=== PATIENT | female | born 1950 | race Caucasian/White ===

== ENCOUNTER 2020-11-28 09:49 | Outpatient (CLI) | payer MEDICARE, OTHER | END 2020-11-28 09:50 | disposition EMS.NT | LOC: EMS 09:49 | DX: Z03.89 Encounter for observation for other suspected diseases and conditions ruled out (principal) ==

== ENCOUNTER 2021-10-02 15:14 | Outpatient (CLI) | payer MEDICARE, OTHER | END 2021-10-02 15:15 | disposition critical access hospital (66) | LOC: EMS 15:14 | DX: M25.561 Pain in right knee (principal) | CPT/HCPCS: A0425; A0427 ==

== ENCOUNTER 2021-10-02 15:29 | Emergency (ER) | payer MEDICARE, OTHER ==
--- NOTE | 2021-10-02 15:51 | ED Physician Documentation ---
History of Present Illness - Stated complaint Stated Complaint: KNEE PX - Chief complaint Chief Complaint: Ext Problem - History obtained from History obtained from: Patient, EMS - History of Present Illness Timing: Today Pain level max: 8 Pain level now: 7 - Additonal information Additional information: EMS gave the patient 100 mcg of fentanyl prior to arrival, therefore it is very difficult for the patient to give any history secondary to drowsiness The history was taken from EMS. EMS states that the patient has a longstanding history of left knee pain. She states increasing pain over the past few weeks. Took oxycodone today without relief. Has a walker at home. Unknown if she uses it or not. She is told EMS that she is awaiting a knee replacement surgery for that knee. Patient denied any trauma or falls to EMS. 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 - Present Medications Home Medications: Ambulatory Orders Medication Instructions Recorded Confirmed Aspirin 81 mg PO DAILY 03/06/13 03/06/13 Bupropion HCl [Bupropion Xl] 150 mg PO BID 03/06/13 03/06/13 Liothyronine Sodium 25 mcg PO DAILY 03/06/13 03/06/13 Metformin HCl 1,000 mg PO BID 03/06/13 03/06/13 Simvastatin [Zocor] 40 mg PO DAILY 03/06/13 03/06/13 Furosemide [Lasix] 40 mg PO ONCE 03/07/13 03/07/13 Gabapentin [Neurontin] 100 mg PO TID 03/07/13 03/07/13 Losartan [Cozaar] 100 mg PO DAILY 03/07/13 03/07/13 Cholecalciferol (Vitamin D3) 1,000 unit PO DAILY 04/07/13 04/07/13 [Vitamin D] Cod Liver Oil 1 each PO DAILY 04/07/13 04/07/13 Multivitamin [Multivitamins] 1 each PO DAILY 04/07/13 04/07/13 [place]-3 Fatty Acids/Fish Oil 1 each PO DAILY 04/07/13 04/07/13 [[place] 3 1,000 mg Softgel] Ubidecarenone [Coq-10] 100 mg PO DAILY 04/07/13 04/07/13 Furosemide [Lasix] 40 mg PO DAILY 09/05/13 09/05/13 Oxycodone HCl/Acetaminophen 1 - 2 each PO Q6H PRN #14 tablet 10/02/21 [Percocet 5-325 mg Tablet] - Allergies Allergies/Adverse Reactions: Allergies Allergy/AdvReac Type Severity Reaction Status Date / Time venom-honey bee Allergy Severe SEPTICEMIA Verified 10/02/21 15:39 [bee venom (honey bee)] oxycodone [Oxycodone] AdvReac Mild INSOMNIA Verified 10/02/21 15:39 simvastatin AdvReac Mild TONGUE Verified 10/02/21 15:39 SWELLS BCP AdvReac Mild TONGUE Uncoded 10/02/21 15:39 SWELLS - Social History Smoking Status: Never smoker PD ED PE NORMAL - Vitals Vital signs reviewed: Yes - General General: No acute distress, Well developed/nourished, Other (drowsy but arousable) - HEENT HEENT: Moist mucous membranes - Neck Neck: Supple, no meningeal sign - Cardiac Cardiac: RRR, Strong equal pulses - Respiratory Respiratory: No respiratory distress, Clear bilaterally - Abdomen Abdomen: Soft, Non tender, Non distended - Derm Derm: Warm and dry - Extremities Extremities: Other (scars over both knees, normal skin. no swelling. FROM without pain. 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 ) PD MEDICAL DECISION MAKING - ED course Complexity details: reviewed results, re-evaluated patient, considered differential, d/w patient ED course: Pain well controlled in the emergency department. Patient states that she is out of her oxycodone and requests a refill. We will prescribe a small amount of medication for her. She has had a knee replacement on the left knee. No apparent issues with hardware. We will have her follow-up with her doctor closely for further care. Patient counseled regarding signs and symptoms for which I believe and urgent re-evaluation would be necessary. Patient with good understanding of and agreement to plan and is comfortable going home at this time This document was made in part using voice recognition software. While efforts are made to proofread this document, sound alike and grammatical errors may occur. I am prescribing a short course of short-acting opioid pain medication for this patient. 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 I have discussed that the opioids are for short term therapy only, and will not be refilled from the ED. Departure - Departure Disposition: 01 Home, Self Care Clinical Impression: Knee pain, left Qualifiers: Chronicity: acute Qualified Code(s): M25.562 - Pain in left knee Condition: Good Instructions: ED Knee Pain [facility] Follow-Up: MARY FISHER MD [Physician No Access] - Mary Fisher MD [Provider Admit Priv/Credential] - Prescriptions: Oxycodone HCl/Acetaminophen [Percocet 5-325 mg Tablet] 1 - 2 each PO Q6H PRN #14 tablet PRN Reason: pain Comments: Please follow-up with your doctor for further care. Your x-ray shows arthritis in your knee. I would continue to use your walker at home. Return if you worsen. Your prescriptions were sent to [facility] in [place]. I am prescribing a short course of narcotic pain medication for you. These are potentially dangerous and addictive medications that should be used carefully. These medications may constipate you. Take an hgll-oes-szisptm stool softener (docusate) twice daily with plenty of water while taking these medications. If you go 24 hours without a bowel movement, take fxtl-[id number] miralax, per package instructions. Do not drink or drive while taking these medications. If you received narcotic or sedating medications while in the emergency depar tment, do not drive for 24 hours. Store this medication in a safe, secure place and out of reach of children. It is a violation of federal law to give or sell this medication to another person or to use in a manner other than prescribed. The ED will not refill narcotic prescriptions, including prescriptions lost or stolen. To dispose of unwanted medications: 1. [facility] at [address] in [place] has a medication drop box. They accept prescription medications (in pill form) Wednesday through Wednesday 9:00 a.m. to 5:00 p.m. 2. The [facility] accepts prescription medications (in pill form only) for disposal year round. Call for more information. 3. Contact the [facility] for the next [facility] sponsored prescription drug collection event. , [phone], or [phone]; Discharge Date/Time: 10/02/21 17:23
--- NOTE | 2021-10-02 16:17 | XRAY Report ---
PROCEDURE: Knee 4 View LT INDICATIONS: L knee pain, no known injury TECHNIQUE: 4 views of the left knee(s) were acquired. COMPARISON: April 11, 2013. FINDINGS: BONES/JOINT: No acute, displaced fracture or dislocation. Tricompartment arthroplasty without eviden ce of compromise. No substantial suprapatellar joint effusion. SOFT TISSUES: No significant abnormality. IMPRESSION: 1.No acute osseous abnormality. Reviewed by: Ketan Buenrostro MD on 10/02/2021 4:15 PM PST Approved by: Ketan Buenrostro MD on 10/02/2021 4:15 PM PST Station ID: [id number]
[2021-10-02 17:23] VITALS: BP 159/84
== END 2021-10-02 17:23 | disposition home or self-care (01) ==
LOC: EDUNIT# → ED 15:29
DX: M25.562 Pain in left knee (principal); Z96.652 Presence of left artificial knee joint; I10 Essential (primary) hypertension; E10.9 Type 1 diabetes mellitus without complications; Z79.84 Long term (current) use of oral hypoglycemic drugs; Z79.82 Long term (current) use of aspirin
CPT/HCPCS: 99281; 99283

== ENCOUNTER → 2022-09-05 | Outpatient (CLI) | payer MEDICARE, OTHER | END | disposition EMS.NT | LOC: EMS 15:37 | DX: R53.83 Other fatigue (principal); R11.2 Nausea with vomiting, unspecified; R50.9 Fever, unspecified ==

== ENCOUNTER 2022-09-07 14:27 | Emergency (ER) | payer MEDICARE, OTHER ==
[2022-09-07 16:06] LABS: BASOPHILS % (AUTO) 0.8 %; EOSINOPHILS % (AUTO) 0.4 %; HCT - HEMATOCRIT 36.2 % (37.0-47.0); HGB - HEMOGLOBIN 10.9 g/dL (12.0-16.0); LYMPHOCYTES # (AUTO) 1.7 10^3/uL (1.5-3.5); LYMPHOCYTES % (AUTO) 33.5 %; MEAN CORPUSCULAR HEMOGLOBIN 23.2 pg (27.0-31.0); MEAN CORPUSCULAR HGB CONC 30.1 g/dL (32.0-36.0); MEAN PLATELET VOLUME 9.4 fL (7.9-10.8); MONOCYTES # (AUTO) 0.9 10^3/uL (0.0-1.0); MONOCYTES % (AUTO) 18.5 %; NEUTROPHILS # (AUTO) 2.3 10^3/uL (1.5-6.6); NEUTROPHILS % (AUTO) 46.4 %; PLT - PLATELET COUNT 257 10^3/uL (130-450); RED CELL DISTRIBUTION WIDTH 14.6 % (12.0-15.0)
[2022-09-07 16:09] LABS: B. PARAPERTUSSIS- RESP PCR PAN NOT DETECTED; B. PERTUSSIS- RESP PCR PANEL NOT DETECTED; C. PNEUMONIAE- RESP PCR PANEL NOT DETECTED; CORONAVIRUS 229E-RESP PCR NOT DETECTED; CORONAVIRUS HKU1-RESP PCR NOT DETECTED; CORONAVIRUS NL63-RESP PCR NOT DETECTED; CORONAVIRUS OC43-RESP PCR NOT DETECTED; HUMAN METAPNEUMOVIRUS NOT DETECTED; INFLUENZA A H3- RESP PCR PANEL DETECTED; INFLUENZA B - RESP PCR PANEL NOT DETECTED; M. PNEUMONIAE- RESP PCR PANEL NOT DETECTED; PARAINFLUENZA VIRUS 1 NOT DETECTED; PARAINFLUENZA VIRUS 2 NOT DETECTED; PARAINFLUENZA VIRUS 3 NOT DETECTED; PARAINFLUENZA VIRUS 4 NOT DETECTED; RHINOVIRUS/ENTEROVIRUS NOT DETECTED; RSV- RESP PCR PANEL NOT DETECTED; SARS-CoV-2 -RESP PCR PANEL NOT DETECTED
[2022-09-07 16:41] LABS: ALBUMIN 3.8 g/dL (3.2-5.5); ALBUMIN/GLOBULIN RATIO 1.1 (1.0-2.2); BILIRUBIN,TOTAL 0.4 mg/dL (0.2-1.0); CALCIUM 8.8 mg/dL (8.5-10.3); CREATININE 2.1 mg/dL (0.4-1.0); POTASSIUM 4.2 mmol/L (3.5-5.0); TOTAL PROTEIN 7.4 g/dL (6.7-8.2)
[2022-09-07] MEDS ORDERED: SODIUM CHLORIDE 0.9% 1,000 ML IV STA (19:23)
[2022-09-07 20:06] LABS: BILIRUBIN,URINE NEGATIVE (NEGATIVE); GLUCOSE, URINE (UA) NEGATIVE (NEGATIVE); KETONES,URINE (UA) NEGATIVE (NEGATIVE); LEUKOCYTE ESTERASE, URINE SMALL (NEGATIVE); NITRITE,URINE NEGATIVE (NEGATIVE); OCCULT BLOOD,URINE NEGATIVE (NEGATIVE); PROTEIN,URINE TRACE mg/dL (NEGATIVE); UROBILINOGEN,URINE 0.2 (NORMAL) E.U./dL (NORMAL)
[2022-09-07 20:08] LABS: CLARITY,URINE HAZY (CLEAR)
[2022-09-07 20:24] LABS: BACTERIA,URINE Few /HPF (None Seen); RBC,URINE 0-5 /HPF (0-5); SQUAMOUS EPITHELIAL CELL,UR MOD Squamous (<= Few)
[2022-09-07] MEDS ORDERED: cefTRIAXone 1 GM VIAL IVP STA (20:33)
[2022-09-07 20:46] VITALS: BP 113/81
--- NOTE | 2022-09-07 20:52 | ED Physician Documentation ---
History of Present Illness - Stated complaint Stated Complaint: FEMALE - Chief complaint Chief Complaint: Resp - History obtained from History obtained from: Patient, Family - History of Present Illness Timing: How many days ago (4) Pain level max: 0 Pain level now: 0 - Additonal information Additional information: Patient is a 71-year-old female who presents to the emergency department since she was diagnosed with influenza about 4 days ago. Has had decreased appetite, decreased oral intake and urinary incontinence since that time. Nothing makes it better or worse. No cough. No congestion. Brought in by family. Patient states that she feels tired. Review of Systems Ten Systems: 10 systems reviewed and negative Constitutional: denies: Fever, Chills Throat: denies: Sore throat Respiratory: denies: Dyspnea, Wheezing GI: denies: Vomiting, Diarrhea Skin: denies: Rash Musculoskeletal: denies: Neck pain, Back pain Neurologic: denies: Headache PD PAST MEDICAL HISTORY - Past Medical History Past Medical History: Yes Cardiovascular: Hypertension, High cholesterol Respiratory: None Endocrine/Autoimmune: Type 1 diabetes GI: None : None HEENT: None Psych: None Musculoskeletal: Osteoarthritis Derm: None - Past Surgical History Past Surgical History: Yes General: Cholecystectomy, Colonoscopy, Other Ortho: Knee replacement, 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 - Present Medications Home Medications: Ambulatory Orders Medication Instructions Recorded Confirmed Aspirin 81 mg PO DAILY 03/06/13 03/06/13 Bupropion HCl [Bupropion Xl] 150 mg PO BID 03/06/13 03/06/13 Liothyronine Sodium 25 mcg PO DAILY 03/06/13 03/06/13 Metformin HCl 1,000 mg PO BID 03/06/13 03/06/13 Simvastatin [Zocor] 40 mg PO DAILY 03/06/13 03/06/13 Furosemide [Lasix] 40 mg PO ONCE 03/07/13 03/07/13 Gabapentin [Neurontin] 100 mg PO TID 03/07/13 03/07/13 Losartan [Cozaar] 100 mg PO DAILY 03/07/13 03/07/13 Cholecalciferol (Vitamin D3) 1,000 unit PO DAILY 04/07/13 04/07/13 [Vitamin D] Cod Liver Oil 1 each PO DAILY 04/07/13 04/07/13 Multivitamin [Multivitamins] 1 each PO DAILY 04/07/13 04/07/13 [place]-3 Fatty Acids/Fish Oil 1 each PO DAILY 04/07/13 04/07/13 [[place] 3 1,000 mg Softgel] Ubidecarenone [Coq-10] 100 mg PO DAILY 04/07/13 04/07/13 Furosemide [Lasix] 40 mg PO DAILY 09/05/13 09/05/13 Oxycodone HCl/Acetaminophen 1 - 2 each PO Q6H PRN #14 tablet 10/02/21 [Percocet 5-325 mg Tablet] cephALEXin [Keflex] 500 mg PO Q6H #20 cap 09/07/22 - Allergies Allergies/Adverse Reactions: Allergies Allergy/AdvReac Type Severity Reaction Status Date / Time venom-honey bee Allergy Severe SEPTICEMIA Verified 10/02/21 15:39 [bee venom (honey bee)] oxycodone [Oxycodone] AdvReac Mild INSOMNIA Verified 10/02/21 15:39 simvastatin AdvReac Mild TONGUE Verified 10/02/21 15:39 SWELLS BCP AdvReac Mild TONGUE Uncoded 10/02/21 15:39 SWELLS - Social History Does the pt smoke?: No Smoking Status: Never smoker Does the pt drink ETOH?: No Does the pt have substance abuse?: No - Immunizations Immunizations are current?: Yes - POLST Patient has POLST: No PD ED PE NORMAL - Vitals Vital signs reviewed: Yes - General General: Alert and oriented X 3, No acute distress, Well developed/nourished - HEENT HEENT: PERRL, Moist mucous membranes - Neck Neck: Supple, no meningeal sign - Cardiac Cardiac: RRR, Strong equal pulses - Respiratory Respiratory: No respiratory distress, Clear bilaterally - Abdomen Abdomen: Soft, Non tender, Non distended - Back Back: No CVA TTP, No spinal TTP - Derm Derm: Warm and dry, No rash - Extremities Extremities: No edema, No calf tenderness / cord - Neuro Neuro: Alert and oriented X 3 - Psych Psych: Normal mood, Normal affect Results - Vitals Vitals: Vital Signs - 24 hr 09/07/22 09/07/22 09/07/22 14:52 19:50 20:45 Temperature 36.0 C L 36.4 C L 36.8 C Heart Rate 69 59 L 64 Respiratory 18 16 16 Rate Blood Pressure 112/59 L 122/73 113/81 H O2 Saturation 97 99 98 Oxygen O2 Source Room air - Labs Labs: Laboratory Tests 09/07/22 09/07/22 09/07/22 15:03 16:01 16:01 WBC 5.0 RBC 4.70 Hgb 10.9 L Hct 36.2 L MCV 77.0 L MCH 23.2 L MCHC 30.1 L RDW 14.6 Plt Count 257 MPV 9.4 Neut # (Auto) 2.3 Lymph # (Auto) 1.7 [place] # (Auto) 0.9 Eos # (Auto) 0.0 Baso # (Auto) 0.0 Absolute Nucleated RBC 0.00 Nucleated RBC % 0.0 Sodium 129 L Potassium 4.2 Chloride 94 L Carbon Dioxide 22 Anion Gap 13.0 BUN 55 H Creatinine 2.1 H Estimated GFR (MDRD) 23 L Glucose 192 H Calcium 8.8 Total Bilirubin 0.4 AST 33 ALT 23 Alkaline Phosphatase 102 Total Protein 7.4 Albumin 3.8 Globulin 3.6 Albumin/Globulin Ratio 1.1 Urine Color Urine Clarity Urine pH Ur Specific [place] Urine Protein Urine Glucose (UA) Urine Ketones Urine Occult Blood Urine Nitrite Urine Bilirubin Urine Urobilinogen Ur Leukocyte Esterase Urine RBC Urine WBC Ur Squamous Epith Cells Urine Bacteria Ur Microscopic Review Urine Culture Comments Nasal Adenovirus (PCR) NOT DETECTED Nasal B. parapertussis DNA (PCR) NOT DETECTED Nasal Coronavir 229E PCR NOT DETECTED Nasal Coronavir HKU1 PCR NOT DETECTED Nasal Coronavir NL63 PCR NOT DETECTED Nasal Coronavir OC43 PCR NOT DETECTED Nasal Enterovir/Rhinovir PCR NOT DETECTED Nasal Influenza A H3 PCR DETECTED A Nasal Influenza B PCR NOT DETECTED Nasal Parainfluen 1 PCR NOT DETECTED Nasal Parainfluen 2 PCR NOT DETECTED Nasal Parainfluen 3 PCR NOT DETECTED Nasal Parainfluen 4 PCR NOT DETECTED Nasal RSV (PCR) NOT DETECTED Nasal B.pertussis DNA PCR NOT DETECTED Nasal C.pneumoniae (PCR) NOT DETECTED Felipe Human Metapneumo PCR NOT DETECTED Nasal M.pneumoniae (PCR) NOT DETECTED Nasal SARS-CoV-2 (PCR) NOT DETECTED 09/07/22 16:52 WBC RBC Hgb Hct MCV MCH MCHC RDW Plt Count MPV Neut # (Auto) Lymph # (Auto) [place] # (Auto) Eos # (Auto) Baso # (Auto) Absolute Nucleated RBC Nucleated RBC % Sodium Potassium Chloride Carbon Dioxide Anion Gap BUN Creatinine Estimated GFR (MDRD) Glucose Calcium Total Bilirubin AST ALT Alkaline Phosphatase Total Protein Albumin Globulin Albumin/Globulin Ratio Urine Color YELLOW Urine Clarity HAZY Urine pH 5.0 Ur Specific [place] 1.025 Urine Protein TRACE Urine Glucose (UA) NEGATIVE Urine Ketones NEGATIVE Urine Occult Blood NEGATIVE Urine Nitrite NEGATIVE Urine Bilirubin NEGATIVE Urine Urobilinogen 0.2 (NORMAL) Ur Leukocyte Esterase SMALL H Urine RBC 0-5 Urine WBC 4-5 Ur Squamous Epith Cells MOD Squamous H Urine Bacteria Few Ur Microscopic Review INDICATED Urine Culture Comments NOT INDICATED Nasal Adenovirus (PCR) Nasal B. parapertussis DNA (PCR) Nasal Coronavir 229E PCR Nasal Coronavir HKU1 PCR Nasal Coronavir NL63 PCR Nasal Coronavir OC43 PCR Nasal Enterovir/Rhinovir PCR Nasal Influenza A H3 PCR Nasal Influenza B PCR Nasal Parainfluen 1 PCR Nasal Parainfluen 2 PCR Nasal Parainfluen 3 PCR Nasal Parainfluen 4 PCR Nasal RSV (PCR) Nasal B.pertussis DNA PCR Nasal C.pneumoniae (PCR) Felipe Human Metapneumo PCR Nasal M.pneumoniae (PCR) Nasal SARS-CoV-2 (PCR) PD MEDICAL DECISION MAKING - ED course Complexity details: reviewed results, re-evaluated patient, considered differential, d/w patient, d/w family ED course: Patient is well-appearing, nontoxic. Afebrile. No hypoxia. No respiratory distress. Lungs are clear to auscultation bilaterally. Feels better after IV fluids. Also given Rocephin for potential UTI. No evidence of pyelonephritis. No evidence of sepsis. We will continue supportive care and have her follow-up with her PCP for further care. Patient and family counseled regarding signs and symptoms for which I believe and urgent re-evaluation would be necessary. Patient with good understanding of and agreement to plan and is comfortable going home at this time This document was made in part using voice recognition software. While efforts are made to proofread this document, sound alike and grammatical errors may occur. Departure - Departure Disposition: 01 Home, Self Care Clinical Impression: Influenza A, Dehydration, Hyponatremia UTI (urinary tract infection) Qualifiers: Urinary tract infection type: acute cystitis Hematuria presence: without hematuria Qualified Code(s): N30.00 - Acute cystitis without hematuria Condition: Good Instructions: ED Flu, ED UTI Cystitis Female Follow-Up: your,doctor in 1 week [Other] Prescriptions: cephALEXin [Keflex] 500 mg PO Q6H #20 cap Comments: Take all antibiotics until gone. Drink plenty of fluids. Return if you worsen. Your prescriptions were sent to [facility] in [place]. Discharge Date/Time: 09/07/22 20:58
== END 2022-09-07 20:58 | disposition home or self-care (01) ==
LOC: ED 14:27
DX: J10.1 Influenza due to other identified influenza virus with other respiratory manifestations (principal); E86.0 Dehydration; E87.1 Hypo-osmolality and hyponatremia; Z20.822 Contact with and (suspected) exposure to COVID-19
CPT/HCPCS: 36415; 80053; 81001; 81003; 85025; 87086; 87633; 96361; 96374; 99283

== ENCOUNTER 2022-11-21 19:35 | Inpatient (IN) | payer MEDICARE, OTHER ==
[2022-11-21 20:10] LABS: BASOPHILS # (AUTO) 0.1 10^3/uL (0.0-0.1); BASOPHILS % (AUTO) 0.4 %; EOSINOPHILS # (AUTO) 0.1 10^3/uL (0.0-0.7); EOSINOPHILS % (AUTO) 0.3 %; HCT - HEMATOCRIT 36.3 % (37.0-47.0); LYMPHOCYTES # (AUTO) 1.2 10^3/uL (1.5-3.5); LYMPHOCYTES % (AUTO) 7.6 %; MEAN CORPUSCULAR HGB CONC 30.3 g/dL (32.0-36.0); MEAN CORPUSCULAR VOLUME 72.7 fL (81.0-99.0); MONOCYTES # (AUTO) 1.6 10^3/uL (0.0-1.0); MONOCYTES % (AUTO) 9.7 %; NEUTROPHILS # (AUTO) 13.1 10^3/uL (1.5-6.6); NEUTROPHILS % (AUTO) 81.5 %; PLT - PLATELET COUNT 295 10^3/uL (130-450); RED BLOOD COUNT 4.99 10^6/uL (4.20-5.40); RED CELL DISTRIBUTION WIDTH 17.2 % (12.0-15.0); WHITE BLOOD COUNT 16.1 x10^3/uL (4.8-10.8)
[2022-11-21 20:11] LABS: SLIDE REVIEW? Indicated
[2022-11-21 20:24] LABS: ALBUMIN 3.8 g/dL (3.2-5.5); BILIRUBIN,TOTAL 0.6 mg/dL (0.2-1.0); CALCIUM 9.3 mg/dL (8.5-10.3); CREATININE 1.1 mg/dL (0.4-1.0); POTASSIUM 4.5 mmol/L (3.5-5.0); TOTAL PROTEIN 7.6 g/dL (6.7-8.2)
[2022-11-21 20:59] LABS: DIFFERENTIAL COMMENT MANUAL=AUTO DIFF; PLATELET ESTIMATE, MANUAL NORMAL (130-450,000) (NORMAL); PLATELET MORPHOLOGY NORMAL APPEARANCE (NORMAL); RBC MORPHOLOGY (MULTIPLE) NORMAL APPEARANCE (NORMAL)
--- NOTE | 2022-11-21 23:37 | XRAY Report ---
PROCEDURE: Chest 2 View X-Ray INDICATIONS: dyspnea TECHNIQUE: 2 views of the chest were acquired. COMPARISON: None. FINDINGS: This study is limited by body habitus. Surgical changes and devices: Cholecystectomy clips are seen. A pacer device can be seen. Lungs and pleura: Low lung volumes can be seen, causing a crowded appearance to the lung markings. Mild generalized interstitial prominence can be seen. No dagmar consolidative infiltrate can be seen. Mediastinum: Mediastinal contours are normal. Heart size is mildly enlarged. Bones and chest wall: No suspicious bony abnormalities. Age-appropriate degenerative changes are see n. Soft tissues appear unremarkable. IMPRESSION: Limited study demonstrating cardiomegaly and interstitial prominence. CHF is suspected. Postoperative and degenerative changes are seen. Reviewed by: Hunter Black MD on 11/21/2022 10:47 PM [facility] Approved by: Hunter Black MD on 11/21/2022 10:47 PM [facility] Station ID: [id number]
[2022-11-21 23:42] LABS: VBG PH 7.361 (7.31-7.41)
[2022-11-21 23:43] LABS: VBG BASE EXCESS -3.6 mmol/L (-2 - +2); VBG HCO3 21.5 mmol/L (23-28); VBG OXYGEN SATURATION 40.6 % (60-80); VBG PCO2 38.8 mmHg (41-51); VBG PO2 24.9 mmHg (25-47); VBG TOTAL CO2 22.7 mmol/L (24-29)
[2022-11-22] MEDS ORDERED: GABAPENTIN 100 MG CAPSULE PO STA (01:03)
[2022-11-22 02:01] LABS: B. PARAPERTUSSIS- RESP PCR PAN NOT DETECTED; B. PERTUSSIS- RESP PCR PANEL NOT DETECTED; CORONAVIRUS 229E-RESP PCR NOT DETECTED; CORONAVIRUS HKU1-RESP PCR NOT DETECTED; CORONAVIRUS NL63-RESP PCR NOT DETECTED; CORONAVIRUS OC43-RESP PCR NOT DETECTED; HUMAN METAPNEUMOVIRUS NOT DETECTED; INFLUENZA A- RESP PCR PANEL NOT DETECTED; INFLUENZA B - RESP PCR PANEL NOT DETECTED; PARAINFLUENZA VIRUS 1 NOT DETECTED; PARAINFLUENZA VIRUS 2 NOT DETECTED; PARAINFLUENZA VIRUS 3 NOT DETECTED; PARAINFLUENZA VIRUS 4 NOT DETECTED; RHINOVIRUS/ENTEROVIRUS NOT DETECTED; RSV- RESP PCR PANEL NOT DETECTED; SARS-CoV-2 -RESP PCR PANEL NOT DETECTED
[2022-11-22 02:02] LABS: C. PNEUMONIAE- RESP PCR PANEL NOT DETECTED; M. PNEUMONIAE- RESP PCR PANEL NOT DETECTED
[2022-11-22] MEDS ORDERED: AZITHROMYCIN INJ 500 MG in SODIUM CHLORIDE 0.9% 250 ML IV STA (02:49)
[2022-11-22] MEDS ORDERED: cefTRIAXone 1 GM in SODIUM CHLORIDE 0.9% MINIBAG 100 ML IV STA (02:49)
--- NOTE | 2022-11-22 02:51 | ED Physician Documentation ---
History of Present Illness - Stated complaint Stated Complaint: SOA,HEADACHE - Chief complaint Chief Complaint: General - History obtained from History obtained from: Patient, Family (son) - Additonal information Additional information: 72-year-old woman With past medical history of DM 1, hypertension, pacemaker, presents with shortness of breath for the past 2 days with associated cough, chills, full body aches, and nausea. denies fever, diarrhea, abdominal pain, vomiting. Review of Systems Constitutional: reports: Chills, Myalgias, Fatigue. 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: Tubal ligation - Present Medications Home Medications: Ambulatory Orders Medication Instructions Recorded Confirmed Aspirin 81 mg PO DAILY 03/06/13 11/21/22 Bupropion HCl [Bupropion Xl] 150 mg PO BID 03/06/13 11/21/22 Liothyronine Sodium 25 mcg PO DAILY 03/06/13 11/21/22 Metformin HCl 1,000 mg PO BID 03/06/13 11/21/22 Simvastatin [Zocor] 40 mg PO DAILY 03/06/13 11/21/22 Furosemide [Lasix] 40 mg PO ONCE 03/07/13 11/21/22 Gabapentin [Neurontin] 100 mg PO TID 03/07/13 11/21/22 Losartan [Cozaar] 100 mg PO DAILY 03/07/13 11/21/22 Cholecalciferol (Vitamin D3) 1,000 unit PO DAILY 04/07/13 11/21/22 [Vitamin D] Cod Liver Oil 1 each PO DAILY 04/07/13 11/21/22 Multivitamin [Multivitamins] 1 each PO DAILY 04/07/13 11/21/22 [place]-3 Fatty Acids/Fish Oil 1 each PO DAILY 04/07/13 11/21/22 [[place] 3 1,000 mg Softgel] Ubidecarenone [Coq-10] 100 mg PO DAILY 04/07/13 11/21/22 Furosemide [Lasix] 40 mg PO DAILY 09/05/13 11/21/22 Oxycodone HCl/Acetaminophen 1 - 2 each PO Q6H PRN #14 tablet 10/02/21 11/21/22 [Percocet 5-325 mg Tablet] cephALEXin [Keflex] 500 mg PO Q6H #20 cap 09/07/22 11/21/22 - Allergies Allergies/Adverse Reactions: Allergies Allergy/AdvReac Type Severity Reaction Status Date / Time venom-honey bee Allergy Severe SEPTICEMIA Verified 11/21/22 19:46 [bee venom (honey bee)] oxycodone [Oxycodone] AdvReac Mild INSOMNIA Verified 11/21/22 19:46 simvastatin AdvReac Mild TONGUE Verified 11/21/22 19:46 SWELLS BCP AdvReac Mild TONGUE Uncoded 11/21/22 19:46 SWELLS - Social History Does the pt smoke?: No Smoking Status: Never smoker Does the pt drink ETOH?: No Does the pt have substance abuse?: No - Immunizations Immunizations are current?: Yes - POLST Patient has POLST: No PD ED PE NORMAL - Vitals Vital signs reviewed: Yes - General General: Alert and oriented X 3, Other (mild dyspnea. large body habitus) - HEENT HEENT: Atraumatic, PERRL, EOMI - Neck Neck: Supple, no meningeal sign - Cardiac Cardiac: Other (tachycardic rate, regular rhythm) - Respiratory Respiratory: Other (distant breath sounds) - Abdomen Abdomen: Non tender, Non distended - Derm Derm: Normal color, Warm and dry - Extremities Extremities: Other (minimal edema) - Neuro Neuro: No motor deficit, No sensory deficit - Psych Psych: Normal mood, Normal affect Results - Vitals Vitals: Vital Signs - 24 hr 11/21/22 11/21/22 11/22/22 19:46 22:19 00:00 Temperature 36.5 C Heart Rate 68 96 97 Respiratory 20 22 Rate Blood Pressure 106/91 H 112/68 O2 Saturation 99 98 100 11/22/22 02:00 Temperature Heart Rate 100 Respiratory 23 Rate Blood Pressure 120/72 O2 Saturation 97 Oxygen O2 Source Room air - Labs Labs: Laboratory Tests 11/21/22 11/21/22 11/21/22 20:06 20:06 20:06 WBC 16.1 H RBC 4.99 Hgb 11.0 L Hct 36.3 L MCV 72.7 L MCH 22.0 L MCHC 30.3 L RDW 17.2 H Plt Count 295 MPV 9.0 Neut # (Auto) 13.1 H Lymph # (Auto) 1.2 L Day # (Auto) 1.6 H Eos # (Auto) 0.1 Baso # (Auto) 0.1 Absolute Nucleated RBC 0.00 Band Neuts % (Manual) Not Reportable Abnorm Lymph % (Manual) Not Reportable Nucleated RBC % 0.0 Neutrophils # (Manual) Not Reportable Lymphocytes # (Manual) Not Reportable Monocytes # (Manual) Not Reportable Eosinophils # (Manual) Not Reportable Basophils # (Manual) Not Reportable Differential Comment MANUAL=AUTO DIFF Manual Slide Review Indicated Platelet Estimate NORMAL (130-450,000) Platelet Morphology NORMAL APPEARANCE RBC Morph Micro Appear NORMAL APPEARANCE VBG pH VBG pCO2 VBG pO2 VBG HCO3 VBG Total CO2 VBG O2 Saturation VBG Base Excess Sodium 129 L Potassium 4.5 Chloride 100 L Carbon Dioxide 16 L Anion Gap 13.0 BUN 31 H Creatinine 1.1 H Estimated GFR (MDRD) 49 L Glucose 283 H POC Whole Bld Glucose Lactic Acid Calcium 9.3 Total Bilirubin 0.6 AST 213 H ALT 99 H Alkaline Phosphatase 119 B-Natriuretic Peptide 807 H Total Protein 7.6 Albumin 3.8 Globulin 3.8 Albumin/Globulin Ratio 1.0 Lipase 34 Nasal Adenovirus (PCR) Nasal B. parapertussis DNA (PCR) Nasal Coronavir 229E PCR Nasal Coronavir HKU1 PCR Nasal Coronavir NL63 PCR Nasal Coronavir OC43 PCR Nasal Enterovir/Rhinovir PCR Nasal Influenza B PCR Nasal Influenza A PCR Nasal Parainfluen 1 PCR Nasal Parainfluen 2 PCR Nasal Parainfluen 3 PCR Nasal Parainfluen 4 PCR Nasal RSV (PCR) Nasal B.pertussis DNA PCR Nasal C.pneumoniae (PCR) Felipe Human Metapneumo PCR Nasal M.pneumoniae (PCR) Nasal SARS-CoV-2 (PCR) 11/21/22 11/21/22 11/22/22 22:05 23:26 01:01 WBC RBC Hgb Hct MCV MCH MCHC RDW Plt Count MPV Neut # (Auto) Lymph # (Auto) Day # (Auto) Eos # (Auto) Baso # (Auto) Absolute Nucleated RBC Band Neuts % (Manual) Abnorm Lymph % (Manual) Nucleated RBC % Neutrophils # (Manual) Lymphocytes # (Manual) Monocytes # (Manual) Eosinophils # (Manual) Basophils # (Manual) Differential Comment Manual Slide Review Platelet Estimate Platelet Morphology RBC Morph Micro Appear VBG pH 7.361 VBG pCO2 38.8 L VBG pO2 24.9 L VBG HCO3 21.5 L VBG Total CO2 22.7 L VBG O2 Saturation 40.6 L VBG Base Excess -3.6 L Sodium Potassium Chloride Carbon Dioxide Anion Gap BUN Creatinine Estimated GFR (MDRD) Glucose POC Whole Bld Glucose 257 H Lactic Acid Calcium Total Bilirubin AST ALT Alkaline Phosphatase B-Natriuretic Peptide Total Protein Albumin Globulin Albumin/Globulin Ratio Lipase Nasal Adenovirus (PCR) NOT DETECTED Nasal B. parapertussis DNA (PCR) NOT DETECTED Nasal Coronavir 229E PCR NOT DETECTED Nasal Coronavir HKU1 PCR NOT DETECTED Nasal Coronavir NL63 PCR NOT DETECTED Nasal Coronavir OC43 PCR NOT DETECTED Nasal Enterovir/Rhinovir PCR NOT DETECTED Nasal Influenza B PCR NOT DETECTED Nasal Influenza A PCR NOT DETECTED Nasal Parainfluen 1 PCR NOT DETECTED Nasal Parainfluen 2 PCR NOT DETECTED Nasal Parainfluen 3 PCR NOT DETECTED Nasal Parainfluen 4 PCR NOT DETECTED Nasal RSV (PCR) NOT DETECTED Nasal B.pertussis DNA PCR NOT DETECTED Nasal C.pneumoniae (PCR) NOT DETECTED Felipe Human Metapneumo PCR NOT DETECTED Nasal M.pneumoniae (PCR) NOT DETECTED Nasal SARS-CoV-2 (PCR) NOT DETECTED 11/22/22 01:32 WBC RBC Hgb Hct MCV MCH MCHC RDW Plt Count MPV Neut # (Auto) Lymph # (Auto) Day # (Auto) Eos # (Auto) Baso # (Auto) Absolute Nucleated RBC Band Neuts % (Manual) Abnorm Lymph % (Manual) Nucleated RBC % Neutrophils # (Manual) Lymphocytes # (Manual) Monocytes # (Manual) Eosinophils # (Manual) Basophils # (Manual) Differential Comment Manual Slide Review Platelet Estimate Platelet Morphology RBC Morph Micro Appear VBG pH VBG pCO2 VBG pO2 VBG HCO3 VBG Total CO2 VBG O2 Saturation VBG Base Excess Sodium Potassium Chloride Carbon Dioxide Anion Gap BUN Creatinine Estimated GFR (MDRD) Glucose POC Whole Bld Glucose Lactic Acid 1.8 Calcium Total Bilirubin AST ALT Alkaline Phosphatase B-Natriuretic Peptide Total Protein Albumin Globulin Albumin/Globulin Ratio Lipase Nasal Adenovirus (PCR) Nasal B. parapertussis DNA (PCR) Nasal Coronavir 229E PCR Nasal Coronavir HKU1 PCR Nasal Coronavir NL63 PCR Nasal Coronavir OC43 PCR Nasal Enterovir/Rhinovir PCR Nasal Influenza B PCR Nasal Influenza A PCR Nasal Parainfluen 1 PCR Nasal Parainfluen 2 PCR Nasal Parainfluen 3 PCR Nasal Parainfluen 4 PCR Nasal RSV (PCR) Nasal B.pertussis DNA PCR Nasal C.pneumoniae (PCR) Felipe Human Metapneumo PCR Nasal M.pneumoniae (PCR) Nasal SARS-CoV-2 (PCR) PD Medical Decision Making - ED course ED course: 72-year-old woman presents with shortness of breath and s/symptoms concerning for clinical pneumonia. CBC and abdominal panel ordered with white blood cell count 16.1 in the setting of tachypnea and tachycardia concerning for pneumonia. Patient has pulmonary congestion on chest x-ray and has BNP of 874. Because of this, 30 cc/kg ivf bolus was omitted. Antibiotics provided and cultures sent. Initial lactic acid <2 therefore no need to repeat. d/w telehealth Dr. Mckeon for admission to [facility]. Departure - Departure Disposition: 66 [facility] DC/Xfer Clinical Impression: Pneumonia Condition: Serious
[2022-11-22] MEDS ORDERED: cefTRIAXone 1 GM VIAL ONE (02:58)
[2022-11-22] MEDS ORDERED: SODIUM CHLORIDE FLUSH 0.9% 10 ML SYRINGE IVP PRN (03:15)
[2022-11-22] MEDS ORDERED: ONDANSETRON 4 MG/2 ML VIAL IVP PRN (03:15)
[2022-11-22] MEDS ORDERED: IPRATROPIUM/ALBUTEROL 3 ML NEB INH PRN (03:19)
--- NOTE | 2022-11-22 03:35 | HISTORY & PHYSICAL EXAMINATION ---
Chief Complaint - Chief Complaint Chief Complaint: SOB History of Present Illness - History of Present Illness HPI Comment/Other: 72 y old female with PMH HTN, DM 2, HLP came with c/o shortness of breath for 2 days. C/O body aches and pain and cough. Denies chest pain, fever, GALE, nausea, vomiting. Pt also c/o constipation. On presentation, pt was afebrile Labs showed WBC 16, Na 129, BNP 807, Lactic acid 1.8, Abnormal LFT`s CXR showed cardiomegaly and pulmonary vascular congestion COVID neg In ER, pt was given IV Rocephin and zithromax Patient is being admitted due to pneumonia, CHF exacerbation History - Past Medical History Cardiovascular: reports: Hypertension, High cholesterol Respiratory: reports: None Endocrine/Autoimmune: reports: Type 1 diabetes GI: reports: None : reports: None HEENT: reports: None Psych: reports: None Musculoskeletal: reports: Osteoarthritis Derm: reports: None MRSA Hx?: No - Past Surgical History General: reports: Cholecystectomy, Colonoscopy, Other Ortho: reports: Knee replacement, Carpal 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: Tubal ligation - POLST Patient has POLST: No Meds/Allgy - Home Medications Home Medications: Ambulatory Orders Medication Instructions Recorded Confirmed Aspirin 81 mg PO DAILY 03/06/13 11/21/22 Bupropion HCl [Bupropion Xl] 150 mg PO BID 03/06/13 11/21/22 Liothyronine Sodium 25 mcg PO DAILY 03/06/13 11/21/22 Metformin HCl 1,000 mg PO BID 03/06/13 11/21/22 Simvastatin [Zocor] 40 mg PO DAILY 03/06/13 11/21/22 Furosemide [Lasix] 40 mg PO ONCE 03/07/13 11/21/22 Gabapentin [Neurontin] 100 mg PO TID 03/07/13 11/21/22 Losartan [Cozaar] 100 mg PO DAILY 03/07/13 11/21/22 Cholecalciferol (Vitamin D3) 1,000 unit PO DAILY 04/07/13 11/21/22 [Vitamin D] Cod Liver Oil 1 each PO DAILY 04/07/13 11/21/22 Multivitamin [Multivitamins] 1 each PO DAILY 04/07/13 11/21/22 [place]-3 Fatty Acids/Fish Oil 1 each PO DAILY 04/07/13 11/21/22 [[place] 3 1,000 mg Softgel] Ubidecarenone [Coq-10] 100 mg PO DAILY 04/07/13 11/21/22 Furosemide [Lasix] 40 mg PO DAILY 09/05/13 11/21/22 Oxycodone HCl/Acetaminophen 1 - 2 each PO Q6H PRN #14 tablet 10/02/21 11/21/22 [Percocet 5-325 mg Tablet] cephALEXin [Keflex] 500 mg PO Q6H #20 cap 09/07/22 11/21/22 - Allergies Allergies/Adverse Reactions: Allergies Allergy/AdvReac Type Severity Reaction Status Date / Time venom-honey bee Allergy Severe SEPTICEMIA Verified 11/21/22 19:46 [bee venom (honey bee)] oxycodone [Oxycodone] AdvReac Mild INSOMNIA Verified 11/21/22 19:46 simvastatin AdvReac Mild TONGUE Verified 11/21/22 19:46 SWELLS BCP AdvReac Mild TONGUE Uncoded 11/21/22 19:46 SWELLS Review of Systems - Other Findings Other Findings: 10 Points systems were reviewed and were negative except mentioned in HPI Exam - Vital Signs Vital Signs: Vital Signs x48h Temp Pulse Resp BP Pulse Ox 11/22/22 02:00 100 23 120/72 97 11/22/22 00:00 97 22 112/68 100 11/21/22 22:19 96 98 11/21/22 19:46 36.5 C 68 20 106/91 H 99 - Physical Exam General Appearance: positive: No acute distress, Mild distress Eyes Bilateral: positive: Normal inspection ENT: positive: ENT inspection nml Neck: positive: Nml inspection Respiratory: positive: No respiratory distress, Breath sounds nml Cardiovascular: positive: Regular rate & rhythm Abdomen: positive: Non-tender, Nml bowel sounds Skin: positive: No rash Extremities: positive: No pedal edema Neurologic/Psychiatric: positive: Oriented x3, Motor nml Conclusion/Plan - Lab Results Fish Bones: 11/21/22 20:06 11/21/22 20:06 - Other Other Results/Comments: A: Pneumonia Acute on chronic CHF exacerbation, unspecified, EF unknown Leukocytosis Hyponatremia Abnormal LFT`s HTN DM 2 HLP Plan: Admit in Med surg with tele Follow cultures Start Rocephin and zithromax Duo neb q4h prn Echo Start lasix 40 mg iv BID Cont losartan Monitor I/O, electrolytes Sliding scale insulin Hold metformin Hold statins DVT prophylaxic: SCD Full code Pt is admitted as inpatient as more than 2 midnight stay is expected
[2022-11-22] MEDS ORDERED: FUROSEMIDE 40 MG/4 ML VIAL ONE (06:38)
[2022-11-22] MEDS ORDERED: INSULIN LISPRO 300 UNIT/3 ML PEN SUBQ SCH (08:00)
[2022-11-22 08:19] LABS: BILIRUBIN,URINE NEGATIVE (NEGATIVE); GLUCOSE, URINE (UA) 100 mg/dL (NEGATIVE); KETONES,URINE (UA) NEGATIVE (NEGATIVE); LEUKOCYTE ESTERASE, URINE NEGATIVE (NEGATIVE); NITRITE,URINE NEGATIVE (NEGATIVE); OCCULT BLOOD,URINE NEGATIVE (NEGATIVE); PH,URINE 5.5 PH (5.0-7.5); PROTEIN,URINE NEGATIVE (NEGATIVE); UROBILINOGEN,URINE 0.2 (NORMAL) E.U./dL (NORMAL)
[2022-11-22 08:21] LABS: CLARITY,URINE CLEAR (CLEAR)
[2022-11-22 08:59] LABS: BASOPHILS % (AUTO) 0.2 %; HCT - HEMATOCRIT 31.5 % (37.0-47.0); HGB - HEMOGLOBIN 9.6 g/dL (12.0-16.0); LYMPHOCYTES # (AUTO) 1.7 10^3/uL (1.5-3.5); LYMPHOCYTES % (AUTO) 8.7 %; MEAN CORPUSCULAR HEMOGLOBIN 22.1 pg (27.0-31.0); MEAN CORPUSCULAR HGB CONC 30.5 g/dL (32.0-36.0); MEAN CORPUSCULAR VOLUME 72.4 fL (81.0-99.0); MONOCYTES # (AUTO) 1.9 10^3/uL (0.0-1.0); NEUTROPHILS # (AUTO) 15.6 10^3/uL (1.5-6.6); NEUTROPHILS % (AUTO) 80.5 %; PLT - PLATELET COUNT 245 10^3/uL (130-450); RED BLOOD COUNT 4.35 10^6/uL (4.20-5.40); RED CELL DISTRIBUTION WIDTH 17.3 % (12.0-15.0); WHITE BLOOD COUNT 19.3 x10^3/uL (4.8-10.8)
[2022-11-22] MEDS ORDERED: buPROPion XL 150 MG TABLET PO SCH (09:00)
[2022-11-22] MEDS ORDERED: FUROSEMIDE 40 MG/4 ML VIAL IVP SCH (09:00)
[2022-11-22] MEDS ORDERED: LIOTHYRONINE 25 MCG TABLET PO SCH (09:00)
[2022-11-22] MEDS ORDERED: LOSARTAN 50 MG TABLET PO SCH (09:00)
[2022-11-22] MEDS ORDERED: ASPIRIN CHEW 81 MG TABLET PO SCH (09:00)
[2022-11-22 09:09] LABS: CREATININE 1.2 mg/dL (0.4-1.0); POTASSIUM 4.4 mmol/L (3.5-5.0)
[2022-11-22 09:13] LABS: RBC MORPHOLOGY (MULTIPLE) 3+ ANISOCYTOSIS (NORMAL); SLIDE REVIEW? Indicated
--- NOTE | 2022-11-22 10:40 | PHARMACY PROGRESS NOTE ---
- Best Possible Medication History Admit Date and Time: 11/22/225 Processed by: Pharmacy Medication History completed: Yes Patient Interview: Completed Secondary Source(s): Other family member, Insurance records Confirmed medications and dosages with patient's son, Rupesh, who had the patient's medication list. As the person ultimately responsible for medication therapy, providers are able to order a medication from an existing home medication list in [facility] via the "Reconcile Routine" prior to Confirmation of that medication by business support coordinator. Such practice is discouraged except when the physician, in their clinical judgment, deems that a medical need exists for a medication without regard to previous use.
[2022-11-22] MEDS: INSULIN LISPRO 300 UNIT/3 ML PEN SUBQ SCH ×3 (11:40→21:17)
[2022-11-22] MEDS: SODIUM CHLORIDE FLUSH 0.9% 10 ML SYRINGE IVP SCH ×2 (11:41→17:11)
[2022-11-22] MEDS: CHOLECALCIFEROL 25 MCG TABLET PO SCH (11:41)
[2022-11-22] MEDS: MULTIVITAMIN TABLET PO SCH (11:41)
[2022-11-22] MEDS: GABAPENTIN 300 MG CAPSULE PO SCH ×2 (12:05→21:14)
[2022-11-22] MEDS ORDERED: LORATADINE 10 MG TABLET PO PRN (15:30)
--- NOTE | 2022-11-22 15:58 | PROVIDER PROGRESS NOTE ---
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 Indication: Hypotension, CHF on chest x-ray Date: 11/22/2022 Image quality: Poor, due to obesity and large breasts Findings: Atria are poorly seen. Upper limit of normal aortic root diameter with mural calcific atherosclerosis seen Dilated left ventricle with mild LVH, moderate to severe global LV hypokinesis, EF 30 to 35%. Diastolic function cannot be assessed due to tachycardia Right ventricle not seen, to estimate size or RV function Mitral annulus calcified, mitral leaflets appear structurally normal. Aortic valve is trileaflet and heavily calcified with restricted mobility. Tricuspid valve structurally normal. Pulmonic valve probably structurally normal Doppler exam shows moderate mitral regurgitation, cannot rule out mitral stenosis, probable significant aortic stenosis present, moderate aortic regurgitation, moderate tricuspid regurgitation. PA pressure could not be accurately assessed from this TR jet Apical fat pad seen, no pericardial effusion. Imp: A complete Echo using Definity should be repeated LVH, global LV hypokinesis, EF estimated at 30 to 35%. Cannot visualize RV size or function. Moderate MR, possible MS Probable significant , moderate MR Moderate TR.
[2022-11-22] MEDS: ACETAMINOPHEN 325 MG TABLET PO PRN (17:10)
--- NOTE | 2022-11-22 17:42 | PROVIDER PROGRESS NOTE ---
Hospitalist Cross-cover Note - Cross-Cover Note Cross-Cover Note: Today I reviewed the entire chart, old records today and all labs. Her bedside Echocardiogram done today shows LV EF of 30%. Patient still complains of a headache and posterior neck pain. The son is at her bedside and says that her speech is not normal (dysarthric) and the patient agrees. She feels very weak, is mildly short of breath and has only been at rest in bed. She is very weak and napped all day. Blood pressure is running "soft" at 90-110 systolic, heart rate is mostly ventr paced, she is in sinus rhythm at rates of 70-110. No fever. Patient was examined: HEENT shows that she has dry oral mucosa, a fine tremor of thr lower jaw seen and she has abnormal dysarthric/slurred speech. She is alert, when awake and oriented x3. Chest has fine end-expiratory wheezing heard in all lung alejo. Heart is tachycardic with distant heart sounds due to large breasts and obesity. Abdomen is soft and nontender. Extremities show no leg edema Chest x-ray was reviewed and shows CHF. No EKG was done however telemetry shows 100% ventricular paced rhythm, the underlying rhythm is sinus. Troponins were ordered and are 35,600>> 33,000 Impression: 1) CHF, new onset Echo shows acute systolic heart failure. It was confirmed with pt and the son at bedside today (with whom I reviewed the entire HPI), that she has never had heart failure before Plan: We will continue with IV twice daily Lasix Continue beta-yumiko Because she has soft blood pressures, we will not start spironolactone or continue her losartan at 50 mg dose Her elevated white blood count of 18 may be phase reactant and since there are no other signs of pneumonia such as infiltrate or cough, we will stop her empiric antibiotics, which are likely adding to a salt load. Repeat a complete Echo, using Definity. Continue telemetry 2) Acute NSTEMI. No troponins were ordered by ER or at admission. When obtained today, we are seeing the tail end of a very large TX. Being a diabetic, she likely had no chest pain. I asked the patient when she last felt severely SOB, and this was approximately 30 hours ago from now. Plan: Obtain a head CT to evaluate the dysarthria and if no signs of hemorrhage we will start with 4 baby aspirin now STAT then daily baby aspirin and start therapeutic Lovenox BID or a heparin drip. Give statin high-dose now Continue with her beta-yumiko, will spread out and stagger meds Because of her hypotension cannot use nitrates Check fasting lipid panel and treat per guidelines I discussed the plan going forward, that she will likely need to be transferred for coronary angiogram, discussed angiography risks and benefits with pt and the son at the patient's bedside. They are both agreeable with this plan. 3) Hypotension VS were all reviewed. BP is approx 100 systolic all day. This is likely from her LV failure. I suspect this is the cause of her somnolence today, and yesterday's complaint of weakness. Plan: If needed, she will be moved to the ICU Continue with low doses of the above medications, will spread out, decrease and stagger meds She received Losartan 50 mg this morning. This will be decreased to 12.5 daily. 4) Dysarthria Her speech is somewhat slurred and not clear, but she has very dry oral mucosa and is also mostly somnolent today. She is on Claritin. Plan: Obtain stat head CT If there is no brain bleed, will order aspirin and anticoagulation Carotid Dopplers Repeat a complete Echo, using Definity 5) Headache Plan: as in #4. Start with Tylenol as needed for symptoms 6) DM type II on insulin No diet was ordered for this patient. Patient reported that she "cheated on her diet 2 days ago which was on her birthday" Plan: Start a DM diet Obtain A1c. Continue with sliding scale insulin, hypoglycemia protocol and fingerstick checks CRITICAL CARE TIME SPENT: 70 min (Obtaining HPI, chart review, patient evaluation, discussion with the patient and with son at bedside, decision making, ordering new meds and treatments, ordering labs)
[2022-11-22] MEDS ORDERED: ATORVASTATIN 40 MG TABLET PO ONE (18:05)
--- NOTE | 2022-11-22 18:06 | CT Report ---
PROCEDURE: HEAD WO INDICATIONS: new dysarthria, 3 days headache and posterior neck TECHNIQUE: Noncontrast 4.5 mm thick angled axial sections acquired from the foramen magnum to the vertex. For r adiation dose reduction, the following was used: automated exposure control, adjustment of mA and/or kV according to patient size. COMPARISON: None. FINDINGS: Image quality: Excellent. CSF spaces: Basal cisterns are patent. No extra-axial fluid collections. Ventricles are normal in size and shape. Brain: No midline shift. No intracranial masses or hemorrhage. Weir-white matter interface is norm al. Intracranial carotid and vertebral artery calcifications. Age-related volume loss and moderate s mall vessel ischemic change. Skull and face: Calvarium and visualized facial bones are intact, without suspicious lesions. Sinuses: Visualized sinuses and mastoids are clear. IMPRESSION: 1. Age-related volume loss and moderate small vessel ischemic change. 2. No evidence acute intracranial abnormality. Reviewed by: Alberto Burger MD on 11/22/2022 6:04 PM PST Approved by: Alberto Burger MD on 11/22/2022 6:04 PM PST Station ID: [id number]
[2022-11-22] MEDS ORDERED: ASPIRIN CHEW 81 MG TABLET PO STA (18:14)
[2022-11-22] MEDS: IPRATROPIUM/ALBUTEROL 3 ML NEB INH SCH (19:32)
[2022-11-22] MEDS ORDERED: AMITRIPTYLINE 25 MG TABLET PO SCH (21:00)
[2022-11-22] MEDS ORDERED: INSULIN GLARGINE-YFGN 300 UNIT/3 ML PEN SUBQ SCH (21:00)
[2022-11-22] MEDS ORDERED: cefTRIAXone 1 GM in SODIUM CHLORIDE 0.9% MINIBAG 100 ML IV SCH (21:00)
[2022-11-22] MEDS: METOPROLOL SUCCINATE 25 MG TABLET PO SCH (21:07)
[2022-11-22] MEDS: FUROSEMIDE 40 MG/4 ML VIAL IVP SCH (21:07)
[2022-11-22] MEDS: ENOXAPARIN 100 MG/ML SYRINGE SUBQ SCH (21:15)
[2022-11-22] MEDS ORDERED: AZITHROMYCIN INJ 500 MG in SODIUM CHLORIDE 0.9% 250 ML IV SCH (22:00)
[2022-11-23 05:51] LABS: BASOPHILS # (AUTO) 0.1 10^3/uL (0.0-0.1); BASOPHILS % (AUTO) 0.4 %; EOSINOPHILS # (AUTO) 0.1 10^3/uL (0.0-0.7); EOSINOPHILS % (AUTO) 0.7 %; HCT - HEMATOCRIT 29.7 % (37.0-47.0); LYMPHOCYTES # (AUTO) 1.9 10^3/uL (1.5-3.5); LYMPHOCYTES % (AUTO) 14.1 %; MEAN CORPUSCULAR HGB CONC 30.3 g/dL (32.0-36.0); MEAN CORPUSCULAR VOLUME 72.4 fL (81.0-99.0); MEAN PLATELET VOLUME 9.5 fL (7.9-10.8); MONOCYTES # (AUTO) 1.4 10^3/uL (0.0-1.0); NEUTROPHILS # (AUTO) 10.1 10^3/uL (1.5-6.6); NEUTROPHILS % (AUTO) 74.2 %; PLT - PLATELET COUNT 264 10^3/uL (130-450); RED CELL DISTRIBUTION WIDTH 17.2 % (12.0-15.0); WHITE BLOOD COUNT 13.6 x10^3/uL (4.8-10.8)
[2022-11-23 05:55] LABS: INR 1.4 (0.8-1.2)
[2022-11-23 06:00] LABS: CALCIUM 8.6 mg/dL (8.5-10.3); CREATININE 1.3 mg/dL (0.4-1.0); POTASSIUM 4.4 mmol/L (3.5-5.0)
[2022-11-23 06:07] LABS: CHOLESTEROL 186 mg/dL; HDL CHOLESTEROL 46 mg/dL; LDL CHOLESTEROL,CALCULATED 122 mg/dL; LDL/HDL RATIO 2.7 (<4.4); MAGNESIUM 2.1 mg/dL (1.7-2.8); TRIGLYCERIDES 89 mg/dL; VLDL CHOLESTEROL 18 mg/dL
[2022-11-23] MEDS: SODIUM CHLORIDE FLUSH 0.9% 10 ML SYRINGE IVP SCH ×2 (06:21→08:18)
[2022-11-23] MEDS: GABAPENTIN 300 MG CAPSULE PO SCH ×2 (06:30→14:04)
[2022-11-23] MEDS: IPRATROPIUM/ALBUTEROL 3 ML NEB INH SCH ×2 (07:19→10:49)
[2022-11-23] MEDS: MULTIVITAMIN TABLET PO SCH (08:02)
[2022-11-23] MEDS: CHOLECALCIFEROL 25 MCG TABLET PO SCH (08:02)
[2022-11-23] MEDS: INSULIN LISPRO 300 UNIT/3 ML PEN SUBQ SCH ×2 (08:02→11:38)
[2022-11-23] MEDS: ENOXAPARIN 100 MG/ML SYRINGE SUBQ SCH (08:16)
[2022-11-23] MEDS: FUROSEMIDE 40 MG/4 ML VIAL IVP SCH ×2 (08:17→11:51)
--- NOTE | 2022-11-23 08:17 | XRAY Report ---
PROCEDURE: Chest 1 View X-Ray INDICATIONS: CHF vs pneumonia TECHNIQUE: One view of the chest was acquired. COMPARISON: 11/21/2022. FINDINGS: Surgical changes and devices: Pacemaker Lungs and pleura: No pleural effusions or pneumothorax. Lungs are clear. Mediastinum: Mediastinal contours appear normal. Mild cardiomegaly. Bones and chest wall: No suspicious bony lesions. Overlying soft tissues appear unremarkable. IMPRESSION: Cardiomegaly. No evidence of acute pulmonary process. Reviewed by: Alberto Burger MD on 11/23/2022 8:14 AM PST Approved by: Alberto Burger MD on 11/23/2022 8:14 AM PST Station ID: [id number]
[2022-11-23] MEDS: METOPROLOL SUCCINATE 25 MG TABLET PO SCH ×2 (08:18→11:50)
[2022-11-23] MEDS ORDERED: METOPROLOL SUCCINATE 25 MG TABLET PO SCH (09:00)
[2022-11-23] MEDS ORDERED: LOSARTAN 50 MG TABLET PO SCH (09:00)
[2022-11-23] MEDS ORDERED: AMIODARONE 200 MG TABLET PO SCH (10:00)
[2022-11-23] MEDS: ACETAMINOPHEN 325 MG TABLET PO PRN (10:31)
[2022-11-23] MEDS ORDERED: ASPIRIN EC 81 MG TABLET PO SCH (11:32)
--- NOTE | 2022-11-23 12:29 | DISCHARGE SUMMARY ---
Discharge Summary Admit Date: 11/22/22 Discharge Date: 11/23/22 Discharging Provider: Dr Roxi Stoddard Primary Care Provider: PRABHJOT Chaudhari Code Status: Attempt Resuscitation Condition at Discharge: Serious Discharge Disposition: 02 Transfer Acute Care Hosp - [facility] History of Present Illness: 72 y old female with PMH HTN, DM type 2, has a pacemaker inserted in 2021, Hyperlipidemia, lives alone, who came to ER with c/o shortness of breath for 2 days. She had gone with friends to a restaurant on her birthday 2 days ago, admits that she "cheated" on her diabetic diet, then when she came home she felt terrible. She cannot give a detailed description of what that meant. That evening she transmitted a pacer strip using her bedside interrogator on to [facility]. She got no call back. The next day she started to get body aches and pain, cough and SOB. When the shortness of breath got bad enough she presented to the ER. Denies chest pain ever, no fever, nausea or vomiting, denies diarrhea or abdominal pain. Pt also c/o constipation. On presentation, pt was afebrile. Labs showed WBC 16, Na 129, BNP 807, Lactic acid 1.8, glu 283, Abnormal LFT`s with AST 213, ALT 99, normal Alk Phos and bili. No EKG was done but telemetry shows an atrial rhythm with 100% ventricular pacing, rate 99. Her CXR showed cardiomegaly and pulmonary vascular congestion, no infiltrate reported. She is COVID neg. In ER, pt was given empiric IV Rocephin and zithromax, got DuoNeb and iv Lasix. Patient is being admitted due to pneumonia and CHF exacerbation. - HOSPITAL COURSE Hospital Course: 1) CHF This patient had fine end-expiratory wheezing, no rales. Because of her hypotension and positive troponins, an urgent bedside Echo was done 11/22 that showed septal asynchrony due to pacing and global LV hypokinesis, EF 30%, so new systolic heart failure. It was confirmed with pt and the son at bedside that she has never had heart failure before. Continued her on IV twice daily Lasix and oral beta-yumiko, with paramaters for holding these. Because she had a soft blood pressures, we could not start spironolactone or continue her losartan at 50 mg dose, it was decreased to 12.5 daily. Her elevated white blood count of 16 was likely a phase reactant and since there were no other signs of pneumonia such as infiltrate or cough, we stopped her empiric antibiotics. 2) Acute NSTEMI. No troponins were ordered by ER or at admission. When trops were obtained, first trop was 35,300>> 33,000. Thus we likely caught the tail end of a very large SC. No EKG had been done at admission, however she was 100% paced on telemetry therefore the EKG would likely not have been helpful. Being a diabetic, she likely had no chest pain. She recalled she felt her worst 2 nights previously. After a head CT was done to evaluate the dysarthria, and showed no stroke, she got 4 baby aspirin, Lipitor 80 mg, and started on therapeutic Lovenox BID. Sinus tachycardia at a rate of 120 was treated with Lopressor IV x1. She was continued on daily aspirin, Lovenox BID, statin and Toprol. On 11/23/2022, I spoke to her Food Service Director Dr. Boggs and he facilitated having her accepted in transfer by the Hospitalist at [facility], where she was transported in stable condition on 11/23/2019 3) Hypotension BP remained mostly 100 systolic. This was likely from her LV failure. She was not given IV saline because of the acute CHF. Her med doses were decreased and staggered. 4) Pacemaker She reports having found a heart rate of 40 on her Apple Watch and a pacemaker was inserted approximately 8 months ago. She is followed by Dr. Boggs of [facility]. 5) Hx VTach On 11/23/2022, I was called by Dr. Boggs's nurse who received the telemetry strip that the patient had submitted through her [place] [employer] monitor, 3 days previously, when she felt her worst. That rhythm showed slow V. tach. I then spoke to Dr. Boggs and reviewed her entire presentation and hospital course. There had been no VT by telemetry, during this short hospitalization. Dr Boggs advised starting Amiodarone loading 400 mg p.o. twice daily which was started before her transfer. 6) Dysarthria Her speech was somewhat slurred and not clear, but she had a very dry oral mucosa and was mostly somnolent on 11/22. She had received Claritin. A STAT head CT was performed to evaluate for stroke. This was negative. Her anticoagulants and antiplatelet agents were started (as in #2). 7) Headache Patient also complained of several days of posterior neck pain and a headache, on 11/22. Head CT found no etiology. Tylenol prn was ordered. 8) DM type II The patient is on insulin. Patient reported that she "cheated on her diet 2 days ago which was on her birthday". Here she was on a diabetic diet, sliding scale insulin, hypoglycemia protocol and fingerstick checks. The A1c came back at 8.5. - ALLERGIES Allergies/Adverse Reactions: Allergies Allergy/AdvReac Type Severity Reaction Status Date / Time venom-honey bee Allergy Severe SEPTICEMIA Verified 11/21/22 19:46 [bee venom (honey bee)] oxycodone [Oxycodone] AdvReac Mild INSOMNIA Verified 11/21/22 19:46 simvastatin AdvReac Mild TONGUE Verified 11/21/22 19:46 SWELLS BCP AdvReac Mild TONGUE Uncoded 11/21/22 19:46 SWELLS - MEDICATIONS Home Medications: Ambulatory Orders Medication Instructions Recorded Confirmed Amitriptyline [Elavil] 75 mg PO QPM 11/22/22 11/22/22 Celecoxib [Celebrex] 200 mg PO BID 11/22/22 11/22/22 Cholecalciferol [Vitamin D3] 25 mcg PO DAILY 11/22/22 11/22/22 Duloxetine HCl [Cymbalta] 60 mg PO DAILY 11/22/22 11/22/22 Gabapentin [Neurontin] 300 mg PO TID 11/22/22 11/22/22 Lisinopril [Zestril] 10 mg PO DAILY 11/22/22 11/22/22 Loratadine [Claritin] 10 mg PO BID PRN 11/22/22 11/22/22 Metoprolol Succinate [Toprol Xl] 25 mg PO DAILY 11/22/22 11/22/22 Multivitamin 1 tab PO DAILYWM 11/22/22 11/22/22 Tolterodine [Detrol LA] 2 mg PO BID 11/22/22 11/22/22 amLODIPine [Norvasc] 5 mg PO DAILY 11/22/22 11/22/22 - PHYSICAL EXAM AT DISCHARGE General Appearance: positive: No acute distress, Alert, Lethargic Eyes Bilateral: positive: Normal inspection, EOMI ENT: positive: ENT inspection nml, Dry mucous membranes Respiratory: positive: No respiratory distress, Wheezes Cardiovascular: positive: Regular rate & rhythm, No murmur Abdomen: positive: Non-tender, Nml bowel sounds, No distention, Other (Obese with pannus) Skin: positive: Warm, Dry Extremities: positive: Non-tender, No pedal edema Neurologic/Psychiatric: positive: Oriented x3, Motor nml - LABS Result Diagrams: 11/23/22 05:25 11/23/22 05:25 - DIAGNOSTIC IMAGING Diagnostic Imaging Results: Final report reviewed - FOLLOW UP Follow Up: This will be determined after her hospitalization at [facility]. - TIME SPENT Time Spent in Discharge (Minutes): 50
--- NOTE | 2022-11-23 12:29 | Discharge Plan ---
Discharge Plan Problem Reviewed?: Yes Disposition: 02 Transfer Acute Care Hosp Condition: Serious No Smoking: If you smoke, Please STOP! Call for help. Follow-up with: KERRY BRANNON DO [Primary Care Provider] -
[2022-11-23 12:52] LABS: ESTIMATED AVERAGE GLUCOSE 197 mg/dL (70-100); HEMOGLOBIN A1c% 8.5 % (4.27-6.07)
[2022-11-23 13:48] VITALS: BP 91/54
[2022-11-23] MEDS ORDERED: ATORVASTATIN 40 MG TABLET PO SCH (21:00)
[2022-11-23] MEDS ORDERED: LORATADINE 10 MG TABLET PO PRN (22:00)
== END 2022-11-23 14:15 | disposition short-term general hospital (02) | DRG 280 ==
LOC: ED 19:35 → MS2 11-22 03:15
PROVIDERS: ADMIT Internal Medicine; ATTEND Internal Medicine
DX: J18.9 Pneumonia, unspecified organism (principal); I11.0 Hypertensive heart disease with heart failure; Z20.822 Contact with and (suspected) exposure to COVID-19; I10 Essential (primary) hypertension; I21.4 Non-ST elevation (NSTEMI) myocardial infarction; I50.23 Acute on chronic systolic (congestive) heart failure; E87.1 Hypo-osmolality and hyponatremia; Z95.0 Presence of cardiac pacemaker; I95.9 Hypotension, unspecified; R47.1 Dysarthria and anarthria; R51.9 Headache, unspecified; M54.2 Cervicalgia; Z79.4 Long term (current) use of insulin; K59.00 Constipation, unspecified; E11.9 Type 2 diabetes mellitus without complications; Z79.84 Long term (current) use of oral hypoglycemic drugs; D72.829 Elevated white blood cell count, unspecified; E78.5 Hyperlipidemia, unspecified; R79.89 Other specified abnormal findings of blood chemistry; R25.1 Tremor, unspecified; R00.0 Tachycardia, unspecified; R53.1 Weakness; E66.9 Obesity, unspecified; Z68.39 Body mass index [BMI] 39.0-39.9, adult
CPT/HCPCS: 36415; 70450; 71045; 71046; 80048; 80053; 80061; 81003; 82803; 83036; 83605; 83690; 83735; 83880; 84484; 85025; 85610; 87040; 87633; 94640; 99285; A9270; J1650; J1815; 81001; 83721; 87086

== ENCOUNTER 2022-11-23 14:19 | Outpatient (CLI) | payer MEDICARE, OTHER | END 2022-11-23 14:20 | disposition short-term general hospital (02) | LOC: EMS 14:19 | PROVIDERS: ATTEND Internal Medicine | DX: I21.4 Non-ST elevation (NSTEMI) myocardial infarction (principal); I50.9 Heart failure, unspecified | CPT/HCPCS: A0425; A0426 ==